=== PATIENT | male | born 1985 | race Caucasian/White ===

== ENCOUNTER 2018-02-07 15:57 | Emergency (ER) | payer OTHER ==
[2018-02-07 16:11] VITALS: BP 120/83
[2018-02-07] MEDS ORDERED: PROPARACAINE/FLUORESCEIN SOD 5 ML OPHT.BTL ONE (16:16)
--- NOTE | 2018-02-07 16:16 | EDPHY ---
H & P Stated Complaint: left eye pain Time Seen by Provider: 02/07/18 16:16 HPI/ROS: CHIEF COMPLAINT: Left eye pain HISTORY OF PRESENT ILLNESS: This is a 32-year-old male who presents with a complaint of left eye pain. He states that he was struck in the left eye with a Nerf ball about 6 hr ago. He feels that his vision is slightly diminished in that eye. He does not use corrective lenses. He underwent Lasix surgery in 2012. He has dry eyes for which he uses drops and a gel. Aside from eye pain he denies other injuries. REVIEW OF SYSTEMS: A ten system review of systems was performed and is negative with the exception of the items mentioned in the HPI. Past medical history: Past surgical history: Family history: Social history: He is . He is employed at [employer]. General Appearance: Alert. Vital signs reviewed. Initial blood pressure 120/ 83. HEENT: Facial bones nontender to palpation, no crepitus. Visual Acuity: noted from Nurse's notes. 20/20 OS, 20/20 right eye, 2010 both eyes. Pupils:equal round and reactive to light, EOMI Lids: no edema or swelling there is slight bruising of the left upper lid. Skin: no proptosis, no periorbital erythema or swelling, no vesicles Conjunctivae: OS is injected, right eye is not injected, no discharge Cornea: exam with fluorescein shows corneal abrasion between 3 and 5:00 o' clock OS. Anterior chamber:normal, no hyphema or hypopyon ENT, Mouth: Mucous membranes are moist, no oropharyngeal erythema or edema. Neck: No lymphadenopathy. Respiratory: Lungs are clear to auscultation; no wheezes, rales, or rhonchi. Cardiovascular: Regular rate and rhythm; no murmur, rub, or gallop. Skin: Warm and dry, no rashes on exposed skin, normal color. Neurological: Alert and oriented. Moving all four extremities easily and equally. Facial sensation intact to light touch. Psychiatric: Normal affect. - Medical/Surgical History Other PMH: lasik (prk), Constitutional: Initial Vital Signs Temperature (C) 37.2 C 02/07/18 16:08 Heart Rate 80 02/07/18 16:08 Respiratory Rate 18 02/07/18 16:08 Blood Pressure 120/83 H 02/07/18 16:08 O2 Sat (%) 94 02/07/18 16:08 O2 Delivery Mode Room Air Allergies/Adverse Reactions: No Known Allergies Allergy (Unverified 02/07/18 16:21) Home Medications: Medication Instructions Recorded NK [No Known Home Meds] 02/07/18 Medical Decision Making ED Course/Re-evaluation: Blunt ocular trauma OS with resultant Corneal abrasion left eye. Small quantity of Vicodin is prescribed for pain control. He is advised to start with ibuprofen and use the Vicodin if needed for more severe pain. Prescription for Ocuflox is given. He is referred to Dr. Mario Booth, ophthalmology. I recommend that he be seen tomorrow or the following day. We reviewed the danger signs that should prompt him to be seen sooner. Differential Diagnosis: I considered a differential diagnosis that includes but is not limited to retrobulbar hemorrhage, open globe injury, orbit fracture, hyphema, retinal tear detachment, vitreous hemorrhage, traumatic iritis, and corneal abrasion. Departure - Departure Disposition: Home, Routine, Self-Care Clinical Impression: Corneal abrasion, left Qualifiers: Encounter type: initial encounter Qualified Code(s): S05.02XA - Injury of conjunctiva and corneal abrasion without foreign body, left eye, initial encounter Condition: Good Instructions: Corneal Abrasion (ED) Additional Instructions: I am prescribing antibiotic eyedrops, ofloxacin. You should place 1 drop in your left eye every 2 hr while awake and every 4-6 hours after going to bed. Do this for [address] 1 drop in the left eye every 6 hr. I am prescribing a small quantity of Vicodin/[place] for you to use as needed for pain. You can take 1-2 of these tablets every 4-6 hours. I recommend that you start with ibuprofen, 600 mg, every 6 hr. Take the ibuprofen with food. If you continue with pain then use the Vicodin. Remember that the Vicodin has a small quantity of Tylenol in each pill--325 mg of Tylenol are in each Vicodin tablet. You should not take more than 3000 mg of Tylenol in a 24 hr time period. It is okay for you to take Tylenol along with the Vicodin but you must keep track of your overall dose so that you do not exceed 3000 mg in 24 hr. It is absolutely imperative that you see the conveyor mechanic, Dr. Booth, tomorrow or Monday. Call his office tomorrow morning, let the office staff know that you have been seen in the emergency department and have been referred for follow-up. They should schedule you an appointment either tomorrow or Monday morning. If you have any new or concerning symptoms such as severe unremitting pain or significant change in vision, you should be re-evaluated. Referrals: Mario Booth MD [Medical Doctor] - As per Instructions
[2018-02-07] MEDS ORDERED: PROPARACAINE/FLUORESCEIN SOD 5 ML OPHT.BTL OP ONE (16:26)
[2018-02-07] MEDS ORDERED: HYDROCOD/APAP 5/325 PREPACK#6 BTL TAKEHOME ONE (16:32)
[2018-02-07] MEDS ORDERED: OFLOXACIN 0.3% SOLN PREPACK OPHT.BTL TAKEHOME ONE (16:32)
== END 2018-02-07 17:08 | disposition home or self-care (01) ==
LOC: CED 15:57
DX: S05.02XA Injury of conjunctiva and corneal abrasion without foreign body, left eye, initial encounter (principal); W21.00XA Struck by hit or thrown ball, unspecified type, initial encounter; Y92.9 Unspecified place or not applicable; Y93.9 Activity, unspecified; Y99.9 Unspecified external cause status